=== PATIENT | female | born 1955 | race Two or more races ===

== ENCOUNTER 2022-04-16 08:50 | Inpatient (IN) | payer MEDICAID, OTHER ==
[~2022-04-16] VITALS: Ht 152.4 cm; Wt 62.5 kg
[2022-04-16 09:42] LABS: Basophils # (auto) 0 10 ^3/uL (0-0.2); Basophils % (auto) 0.5 % (0.0-2.0); Eosinophils # (auto) 0.1 10 ^3/uL (0-0.8); Eosinophils % (auto) 2.3 % (0.0-7.0); Hematocrit 42.4 % (36.0-46.0); Hemoglobin 13.9 g/dL (12.2-16.2); Lymphocytes # (auto) 1.6 10 ^3/uL (0.4-5.4); Lymphocytes % (auto) 24.3 % (10.0-50.0); Mean Corpuscular Hemoglobin 29.4 pg (28.0-32.0); Mean Corpuscular Hgb Conc. 32.9 g/dL (32.0-36.0); Mean Corpuscular Volume 89.4 fL (80.0-100.0); Monocytes # (auto) 0.3 10 ^3/uL (0-1.3); Monocytes % (auto) 3.9 % (0.0-12.0); Neutrophils # (auto) 4.5 10 ^3/uL (1.6-8.6); Nucleated Red Blood Cells % 0.1 %; Red Blood Cells 4.74 10^6/uL (4.0-5.20); Red Cell Distribution Width 13.7 % (11.8-14.3); White Blood Cell 6.5 10^3/uL (4.4-10.8)
[2022-04-16 09:49] LABS: Urine Bacteria NONE SEEN /hpf (None Seen); Urine Blood Negative /uL (Negative); Urine Specific Gravity 1.019 (1.001-1.035); Urine WBC 13 /hpf (0 - 5)
[2022-04-16 09:57] LABS: Albumin 3.7 g/dL (3.4-5.0); Calcium 8.9 mg/dL (8.5-10.1); Potassium 3.8 mmol/L (3.5-5.1)
[2022-04-16] MEDS ORDERED: SODIUM CHLORIDE 0.9% 1,000 ML IV ONE (10:00)
[2022-04-16 10:02] LABS: Bilirubin, Total 0.6 mg/dL (0.2-1.0); Total Protein 7.5 g/dL (6.4-8.2)
[2022-04-16] MEDS ORDERED: IOHEXOL 300 MG/ML 100ML BOTTLE IJ ONE (14:34)
[2022-04-16] MEDS ORDERED: KETOROLAC TROMETH 60MG/2ML VIAL IM ONE (16:30)
[2022-04-16] MEDS ORDERED: cefTRIAXone 1GM/50ML D5W 50 ML IV ONE (20:15)
[2022-04-16] MEDS ORDERED: metroNIDAZOLE 500MG/100ML 100 ML IV ONE (20:15)
[2022-04-16] MEDS ORDERED: HYDROcodone-ACET 5/325MG TAB PO ONE (20:30)
[2022-04-16] MEDS ORDERED: DEXTROSE (50%) 50ML SYRG IV PRN (22:30)
[2022-04-16] MEDS ORDERED: MORPHINE SULFATE INJ 2 MG/ml SYRG IV PRN ×2 (22:30)
[2022-04-16] MEDS ORDERED: HYDROcodone-ACET 5/325MG TAB PO PRN (22:30)
[2022-04-16] MEDS ORDERED: NITROGLYCERIN 0.4 MG SL TAB SL PRN (22:30)
[2022-04-16] MEDS ORDERED: ACETAMINOPHEN 325 MG TAB PO PRN (22:30)
[2022-04-16] MEDS: SOD CHL 0.45% 1,000 ML IV SCH (22:45)
[2022-04-17] MEDS: ACCU-CHEK COMFORT CURVE STRIP VI SCH ×4 (02:29→18:48)
[2022-04-17] MEDS: InsuLIN REG 1unit/0.01ml Soln (100units/ml) SC SCH ×4 (02:29→18:51)
[2022-04-17 05:59] LABS: Basophils # (auto) 0 10 ^3/uL (0-0.2); Basophils % (auto) 0.6 % (0.0-2.0); Eosinophils # (auto) 0.2 10 ^3/uL (0-0.8); Eosinophils % (auto) 3.7 % (0.0-7.0); Hematocrit 41.4 % (36.0-46.0); Hemoglobin 13.7 g/dL (12.2-16.2); Lymphocytes % (auto) 35.9 % (10.0-50.0); Mean Corpuscular Hemoglobin 29.5 pg (28.0-32.0); Mean Corpuscular Hgb Conc. 33.1 g/dL (32.0-36.0); Mean Corpuscular Volume 89.2 fL (80.0-100.0); Monocytes # (auto) 0.3 10 ^3/uL (0-1.3); Monocytes % (auto) 5.7 % (0.0-12.0); Neutrophils # (auto) 2.9 10 ^3/uL (1.6-8.6); Neutrophils % (auto) 54.1 % (37.0-80.0); Nucleated Red Blood Cells % 0.1 %; Red Blood Cells 4.64 10^6/uL (4.0-5.20); Red Cell Distribution Width 13.7 % (11.8-14.3); White Blood Cell 5.4 10^3/uL (4.4-10.8)
[2022-04-17 06:06] LABS: Albumin 3.3 g/dL (3.4-5.0); Calcium 8.5 mg/dL (8.5-10.1); Potassium 3.8 mmol/L (3.5-5.1)
[2022-04-17 06:11] LABS: Bilirubin, Total 0.4 mg/dL (0.2-1.0); Total Protein 6.8 g/dL (6.4-8.2)
[2022-04-17] MEDS ORDERED: FAMOTIDINE (10MG/ML) 2ML VL IV SCH (10:00)
[2022-04-17] MEDS: ONDANSETRON HCL 4 MG/2 ML VIAL IV PRN (10:39)
[2022-04-17] MEDS: CARISOPRODOL 350 MG TAB PO PRN (15:48)
[2022-04-17 17:00] VITALS: BP 111/45
[2022-04-17] MEDS: SOD CHL 0.45% 1,000 ML IV SCH (18:47)
[2022-04-17 21:18] VITALS: BP 147/52
[2022-04-17 22:00] VITALS: BP 121/49
[2022-04-17] MEDS ORDERED: METF-869 PO (22:12)
[2022-04-17] MEDS ORDERED: ASPI-543 PO (22:15)
[2022-04-17] MEDS ORDERED: INSULIN LANTUS (GLARGINE) 1 /0.01ml (100units/ml) SC ONE (23:15)
[2022-04-18] MEDS: ACCU-CHEK COMFORT CURVE STRIP VI SCH ×4 (01:06→18:30)
[2022-04-18 05:00] VITALS: BP 120/42
[2022-04-18] MEDS: CARISOPRODOL 350 MG TAB PO PRN ×2 (05:18→10:30)
[2022-04-18] MEDS: InsuLIN REG 1unit/0.01ml Soln (100units/ml) SC SCH ×4 (06:05→18:00)
[2022-04-18] MEDS ORDERED: INSULIN LANTUS (GLARGINE) 1 /0.01ml (100units/ml) SC SCH (07:00)
[2022-04-18 08:00] VITALS: BP 106/47
[2022-04-18] MEDS ORDERED: PANTOPRAZOLE 40 MG/10 ML VIAL INJ IV SCH (10:00)
[2022-04-18] MEDS ORDERED: GOLYTELY 4L KIT PO ONE (11:45)
[2022-04-18 12:00] VITALS: BP 121/53
[2022-04-18] MEDS: GABAPENTIN 100 MG CAP PO SCH ×2 (14:00→21:48)
[2022-04-18] MEDS: SOD CHL 0.45% 1,000 ML IV SCH (15:37)
[2022-04-18 16:00] VITALS: BP 116/54
[2022-04-18] MEDS: ONDANSETRON HCL 4 MG/2 ML VIAL IV PRN (21:47)
[2022-04-18 22:00] VITALS: BP 136/58
[2022-04-19] MEDS: ACCU-CHEK COMFORT CURVE STRIP VI SCH ×3 (00:06→12:00)
[2022-04-19 05:00] VITALS: BP 102/41
[2022-04-19 05:30] LABS: Basophils # (auto) 0 10 ^3/uL (0-0.2); Basophils % (auto) 0.4 % (0.0-2.0); Eosinophils # (auto) 0.2 10 ^3/uL (0-0.8); Eosinophils % (auto) 2.8 % (0.0-7.0); Hematocrit 36.4 % (36.0-46.0); Hemoglobin 11.9 g/dL (12.2-16.2); Lymphocytes # (auto) 1.7 10 ^3/uL (0.4-5.4); Mean Corpuscular Hemoglobin 29.1 pg (28.0-32.0); Mean Corpuscular Hgb Conc. 32.8 g/dL (32.0-36.0); Mean Corpuscular Volume 88.9 fL (80.0-100.0); Monocytes # (auto) 0.3 10 ^3/uL (0-1.3); Monocytes % (auto) 5.2 % (0.0-12.0); Neutrophils # (auto) 3.5 10 ^3/uL (1.6-8.6); Neutrophils % (auto) 61.6 % (37.0-80.0); Nucleated Red Blood Cells % 0.1 %; Red Blood Cells 4.09 10^6/uL (4.0-5.20); Red Cell Distribution Width 13.9 % (11.8-14.3); White Blood Cell 5.7 10^3/uL (4.4-10.8)
[2022-04-19 05:44] LABS: INR 0.97 (0.9-1.15); Partial Thromboplastin Time 25.1 sec (24.6-33.4); Potassium 3.8 mmol/L (3.5-5.1)
[2022-04-19] MEDS: GABAPENTIN 100 MG CAP PO SCH ×2 (05:45→14:59)
[2022-04-19 05:49] LABS: Albumin 3.2 g/dL (3.4-5.0); BUN/Creatinine Ratio 13.6; Bilirubin, Total 0.5 mg/dL (0.2-1.0); Calcium 8.2 mg/dL (8.5-10.1); Total Protein 5.9 g/dL (6.4-8.2)
[2022-04-19] MEDS: InsuLIN REG 1unit/0.01ml Soln (100units/ml) SC SCH ×3 (05:50→12:00)
[2022-04-19 08:00] VITALS: BP 115/39
[2022-04-19] MEDS ORDERED: NALOXONE HCL 0.4 MG/ML VIAL ONE (09:21)
[2022-04-19] MEDS ORDERED: FLUMAZENIL 0.1 MG/ML INJ 10ML MDV IV ONE (09:22)
[2022-04-19] MEDS ORDERED: LIDOCAINE VISCOUS 2% 15ML UD ONE (09:23)
[2022-04-19] MEDS ORDERED: MIDAZOLAM HCL 5 MG/ML-1ML VIAL ONE (09:24)
[2022-04-19] MEDS ORDERED: diphenhdrAMINE HCL 50 MG/1 ML VL ONE (09:25)
[2022-04-19] MEDS ORDERED: fentaNYL CITRATE 100 MCG/2 ML VL ONE (09:25)
[2022-04-19] MEDS ORDERED: SODIUM CHLORIDE LOCK 10 ML ONE (09:26)
[2022-04-19] MEDS: SOD CHL 0.45% 1,000 ML IV SCH (10:30)
[2022-04-19 11:45] VITALS: BP 120/43
[2022-04-19] MEDS ORDERED: METF-370 PO (13:24)
[2022-04-19] MEDS ORDERED: GAB100C PO (13:24)
[2022-04-19] MEDS ORDERED: AMLO-496 PO (13:24)
[2022-04-19 16:00] VITALS: BP 119/43
[2022-04-19 16:33] VITALS: BP 120/43
[2022-04-20] MEDS ORDERED: PANTOPRAZOLE 40 MG TAB PO SCH (10:00)
== END 2022-04-19 17:30 | disposition home or self-care (01) | DRG 249 ==
LOC: ER 08:57 → OVERFLOW 22:16 → EAST 04-17 11:06
PROVIDERS: ADMIT Nurse Practitioner Family; ATTEND Nurse Practitioner Acute Care
PROC: 0DB68ZX Excision of Stomach, Via Natural or Artificial Opening Endoscopic, Diagnostic (ICD-10-PCS; principal; 2022-04-19 10:20)
PROC: 0DJD8ZZ Inspection of Lower Intestinal Tract, Via Natural or Artificial Opening Endoscopic (ICD-10-PCS; 2022-04-19 10:20)
DX: K52.9 Noninfective gastroenteritis and colitis, unspecified (principal); E11.9 Type 2 diabetes mellitus without complications; E78.5 Hyperlipidemia, unspecified; I10 Essential (primary) hypertension; N39.0 Urinary tract infection, site not specified; K29.70 Gastritis, unspecified, without bleeding; K29.80 Duodenitis without bleeding; K57.30 Diverticulosis of large intestine without perforation or abscess without bleeding; K64.8 Other hemorrhoids; Z20.822 Contact with and (suspected) exposure to COVID-19; M54.30 Sciatica, unspecified side; Z79.899 Other long term (current) drug therapy
CPT/HCPCS: 36415; 43239; 45378; 71045; 74177; 76705; 80053; 81001; 82150; 82962; 83036; 83690; 84484; 85025; 85610; 85730; 86850; 86900; 86901; 87086; 87426; 93005; 96361; 96365; 96372; C9113; G0378; J0696; J1815; J1885; J2250; J2405; J3490

== ENCOUNTER 2023-03-02 00:59 | Emergency (ER) | payer MEDICAID ==
[~2023-03-02] VITALS: Ht 142.2 cm; Wt 56.4 kg
[~2023-03-02 00:59] MED LIST: AMLO1TAB23 PO; ASPI-543 PO; GAB100C PO; METF-370 PO; METF-869 PO
[2023-03-02 01:55] LABS: Basophils # (auto) 0 10 ^3/uL (0-0.2); Basophils % (auto) 0.6 % (0.0-2.0); Eosinophils # (auto) 0.2 10 ^3/uL (0-0.8); Hematocrit 41.4 % (36.0-46.0); Hemoglobin 13.5 g/dL (12.2-16.2); Lymphocytes # (auto) 2.2 10 ^3/uL (0.4-5.4); Lymphocytes % (auto) 33.2 % (10.0-50.0); Mean Corpuscular Hemoglobin 29.1 pg (28.0-32.0); Mean Corpuscular Hgb Conc. 32.6 g/dL (32.0-36.0); Mean Corpuscular Volume 89.1 fL (80.0-100.0); Monocytes # (auto) 0.4 10 ^3/uL (0-1.3); Monocytes % (auto) 5.8 % (0.0-12.0); Neutrophils # (auto) 3.7 10 ^3/uL (1.6-8.6); Neutrophils % (auto) 57.4 % (37.0-80.0); Red Blood Cells 4.65 10^6/uL (4.0-5.20); Red Cell Distribution Width 13.4 % (11.8-14.3); White Blood Cell 6.5 10^3/uL (4.4-10.8)
[2023-03-02 02:07] LABS: Alanine Aminotransferase 17 U/L (7-40); Albumin 4.5 g/dL (3.2-4.8); Alkaline Phosphatase 137 U/L (46-116); Anion Gap 9 (5-15); Aspartate Aminotransferase 9 U/L (13-40); Bilirubin, Total 0.4 mg/dL (0.2-1.0); Blood Urea Nitrogen 14 mg/dL (9-23); Calcium 9.2 mg/dL (8.7-10.4); Carbon Dioxide 22 mmol/L (20-30); Chloride 107 mmol/L (98-107); Glucose 204 mg/dL (74-106); Lipase 57 U/L (12-53); Potassium 3.5 mmol/L (3.5-5.1); Sodium 138 mmol/L (136-145); Total Protein 7.3 g/dL (5.7-8.2)
[2023-03-02 02:38] LABS: Urine Bacteria NONE SEEN /hpf (None Seen); Urine Blood Negative /uL (Negative); Urine Clarity Clear (Clear); Urine Color Colorless (Yellow); Urine Protein, UAD Negative (Negative); Urine Specific Gravity 1.004 (1.001-1.035); Urine Urobilinogen Normal (Negative); Urine WBC 3 /hpf (0 - 5)
[2023-03-02] MEDS ORDERED: DICYCLOMINE HCL (10MG/ML) 2 ML AMPULE IM ONE ×2 (07:15→09:00)
[2023-03-02] MEDS ORDERED: KETOROLAC TROMETH 60MG/2ML VIAL IM ONE ×2 (07:15→09:00)
[2023-03-02] MEDS ORDERED: ONDANSETRON ODT 4 MG TAB PO ONE ×2 (07:15→09:00)
[2023-03-02] MEDS ORDERED: ZOFR4T PO (11:21)
[2023-03-02 11:52] VITALS: BP 133/56; PULSE 60; RESP 16; TEMP 97.1; O2SAT 98
== END 2023-03-02 11:53 | disposition home or self-care (01) ==
LOC: ER 01:01
DX: R10.13 Epigastric pain (principal); R11.0 Nausea; I10 Essential (primary) hypertension; E11.9 Type 2 diabetes mellitus without complications; E78.5 Hyperlipidemia, unspecified; Z98.890 Other specified postprocedural states; Z79.84 Long term (current) use of oral hypoglycemic drugs; Z79.899 Other long term (current) drug therapy
CPT/HCPCS: 36415; 71045; 74176; 76705; 80053; 81001; 83690; 84484; 85025; 93005; 96372; 99285; J0500; J1885; Q0162

== ENCOUNTER 2024-11-20 22:30 | Inpatient (IN) | payer MEDICAID ==
[~2024-11-20] VITALS: Ht 142.2 cm; Wt 59.2 kg
[~2024-11-20 22:30] MED LIST changes: +ZOFR4T PO
--- NOTE | 2024-11-21 00:44 | ED.PDOC ---
GI ASSESSMENT HPI Comments 70 year old female presents to the ED with a chief complaint of hematemesis onset 1 day. Patient states she experienced 4 episodes of hematemesis, noticed blood clots and is also experiencing diffused abdominal pain with burning sensation, headache, nausea/vomiting, bilateral flank pain, worse on LT side. Patient noticed for the past 1.5 months, she experiences 1 episode of hematemesis in the morning, shortly after waking up, noticed today she ex perienced 4 episodes, came to ED. She has also noticed black phlegm with foul odor. PMHx HTN, DM, HLD. Denies dizziness, fevers, chills, melena, rectal pain, shortness of breath. No other symptoms or modifying factors present at this time. Chief Complaint: Nausea/Vomiting Time Seen by MD: 00:30 Primary Care Provider: Chelsie Reviewed Notes: Medications, Allergies Allergies: Coded Allergies: NO KNOWN ALLERGIES (Unverified , 04/16/22) Home Meds Active Scripts Ondansetron Odt 4MG Tab (ZOFRAN PO) 4 Mg Tb, 4 MG PO TID for 7 Days, #21 TAB ODT TAB-DISSOLVE IN MOUTH, THEN SWALLOW Prov:PETTY MINA MD 03/02/23 Amlodipine Besylate (Amlodipine Besylate) 10 Mg Tab, 1 TAB PO DAILY, #90 TAB 3 Refills Prov:BELLA HERNANDEZ NP 04/19/22 Metformin Hydrochloride (Metformin Hcl) 500 Mg Tab, 1 TAB PO BID, #60 TAB 3 Refills Prov:BELLA HERNANDEZ NP 04/19/22 Gabapentin (Gabapentin) 100 Mg Cap, 100 MG PO TID for 90 Days, #270 CAP Prov:BELLA HERNANDEZ NP 04/19/22 Reported Medications Aspirin (Aspir-Low) 81 Mg Tab, 81 MG PO DAILY for 30 Days, MG 04/17/22 Metformin Hydrochloride (Metformin Hydrochloride) 500 Mg Tab, 1 TAB PO DAILYPRN 04/17/22 Information Source: Patient, Relative (GrandChild) Mode of Arrival: Ambulatory Timing: Hours Duration: Since onset Prehospital treatment: None Quality: Burning, Sharp Vomitus: Bloody Severity: Moderate Recent: None Recent Hx of: None Pain Location: Diffuse Modifying Factors: Nothing Associated sign and symptoms: Nausea, Vomiting, Hematemesis, Abdominal Pain Vital Signs Vital Signs Date Time Temp Pulse Resp B/P (MAP) Pulse Ox O2 Delivery O2 Flow Rate FiO2 11/21/24 02:40 56 14 143/48 11/21/24 02:21 98 Room Air* 0 21 11/21/24 02:12 98.2 98.2 Physical Exam PHYSICAL EXAM: General: Awake, alert and oriented. No acute distress. Skin: Skin in warm, dry and intact. Appropriate color for ethnicity. HEENT: The head is normocephalic and atraumatic. Conjunctivae are clear without exudates or hemorrhage. Sclera is non-icteric. EOM are intact. No signs of nystagmus. Eyelids are normal in appearance without swelling or lesions. Oral mucosa is pink and moist Neck: The neck is supple with normal range of motion. No JVD. Cardiac: Heart rate and rhythm are normal. No murmurs, gallops, or rubs are auscultated. Respiratory: No signs of respiratory distress. Lung sounds are clear in all lobes bilaterally without rales, rhonchi, or wheezes. Abdominal: Abdomen is soft, generally-tender without distention, guarding or rigidity. Bowel sounds are present and normoactive in all four quadrants. Extremities: Upper and lower extremities are atraumatic in appearance without deformity or edema. Neurological: The patient is awake, alert and oriented to person, place, and time with normal speech. Speech is clear. There is no facial asymmetry. Psychiatric: Appropriate mood and affect. Good judgement and insight. Review of Systems: REVIEW OF SYSTEMS: General: No fever, no chills, or fatigue HEENT: No sore throat, no earache, no congestion, no neck pain. Cardiac: No chest pain. No palpitations. Lungs: No shortness of breath, no cough. No hemoptysis GI: Positive nausea, positive vomiting, no diarrhea, no constipation, positive abdominal pain, positive hematemesis : No dysuria, frequency, or urgency. No hematuria. Musculoskeletal: No joint pain , no joint swelling, no extremity edema. Skin: No rash, no itching. 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 Was a procedure done?: No GI differential Dx Differential Diagnosis: Other Other Differential Diagnosis Differential diagnoses considered include but are not limited to Peptic ulcer disease, esophageal varices,Langford's esophagus, cancer, diverticular disease, esophageal rupture/perforation, Marce-Bhat tear, other X-Ray, Labs, Meds, VS Vital Signs Date Time Temp Pulse Resp B/P (MAP) Pulse Ox O2 Delivery O2 Flow Rate FiO2 11/21/24 02:40 56 14 143/48 11/21/24 02:21 53 14 98 Room Air* 0 21 11/21/24 02:12 98.2 54 14 143/48 (79) 98 98.2 11/21/24 02:12 53 14 143/48 11/21/24 00:44 64 11/20/24 23:23 64 11/20/24 22:45 98.1 70 18 144/65 (91) 95 98.1 Lab Test 11/21/24 00:39 Range/Units White Blood Count 6.4 4.4-10.8 10^3/uL Red Blood Count 4.82 4.0-5.20 10^6/uL Hemoglobin 14.3 12.2-16.2 g/dL Hematocrit 42.9 36.0-46.0 % Mean Corpuscular Volume 89.0 80.0-100.0 fL Mean Corpuscular Hemoglobin 29.6 28.0-32.0 pg Mean Corpuscular Hemoglobin Concent 33.3 32.0-36.0 g/dL Red Cell Distribution Width 13.4 11.8-14.3 % Platelet Count 210 140-450 10^3/uL Mean Platelet Volume 10.4 6.9-10.8 fL Neutrophils (%) (Auto) 54.9 37.0-80.0 % Lymphocytes (%) (Auto) 37.8 10.0-50.0 % Monocytes (%) (Auto) 4.4 0.0-12.0 % Eosinophils (%) (Auto) 2.4 0.0-7.0 % Basophils (%) (Auto) 0.5 0.0-2.0 % Neutrophils # (Auto) 3.5 1.6-8.6 10 ^3/uL Lymphocytes # (Auto) 2.4 0.4-5.4 10 ^3/uL Monocytes # (Auto) 0.3 0-1.3 10 ^3/uL Eosinophils # (Auto) 0.2 0-0.8 10 ^3/uL Basophils # (Auto) 0 0-0.2 10 ^3/uL Nucleated Red Blood Cells 0.1 % Prothrombin Time 10.0 9.3-11.8 sec Prothrombin Time INR 0.94 0.9-1.15 Activated Partial Thromboplast Time 24.8 24.5-34.5 SEC Sodium Level 143 136-145 mmol/L Potassium Level 3.8 3.5-5.1 mmol/L Chloride Level 106 98-107 mmol/L Carbon Dioxide Level 29 20-31 mmol/L Anion Gap 8 5-15 Blood Urea Nitrogen 20 9-23 mg/dL Creatinine 0.93 0.550-1.02 mg/dL Glomerular Filtration Rate Calc 66 >90 mL/min BUN/Creatinine Ratio 21.5 H 10.0-20.0 Serum Glucose 161 H 74-106 mg/dL Lactic Acid Level 1.5 0.4-2.0 mmol/L Calcium Level 9.1 8.7-10.4 mg/dL Magnesium Level Pending Total Bilirubin 0.6 0.2-1.0 mg/dL Direct Bilirubin 0.2 <0.3 mg/dL Aspartate Amino Transferase (AST) 19 13-40 U/L Alanine Aminotransferase (ALT) 19 7-40 U/L Alkaline Phosphatase 109 46-116 U/L Total Protein 7.4 5.7-8.2 g/dL Albumin 4.6 3.2-4.8 g/dL Lipase Pending Thyroid Stimulating Hormone (TSH) 3.55 0.55-4.78 uIU/mL Current Medications Medications (Trade) Dose Ordered Sig/Brittney Route Start Time Stop Time Status Last Admin Pantoprazole Sodium (Protonix) 40 mg ONCE ONCE IV 11/21/24 00:30 11/21/24 00:31 DC 11/21/24 01:27 Ondansetron HCl (Zofran) 4 mg ONCE ONCE IV 11/21/24 02:00 11/21/24 02:01 DC 11/21/24 02:08 Morphine Sulfate 2 mg ONCE ONCE IV 11/21/24 02:00 11/21/24 02:01 DC 11/21/24 02:12 Time of 1ST Reevaluation: 01:00 Reevaluation 1ST: Unchanged Patient Education/Counseling: Treatment, Other (Need for admission) Family Education/Counseling: Treatment, Other (Need for admission) SEPSIS Sepsis Screen Date sepsis recognized/suspect: Nov 20, 2024 Time Sepsis recognized/suspect: 2244 Recent Procedure: No On Antibiotic Therapy: No Respiratory Rate >20: No Heart Rate >90: No Temp<36 C (96.8 F) or >38.3 C: No SBP <90 or MAP <65 mmHG: No New Acute Mental Status Change: No Is the patient on CPAP, BIPAP,: No Physician Orders Urinalysis (11/21/24 00:22) Stool Occult Blood (11/21/24 00:22) Ct Ab Pel With Iv Con Only (11/21/24 00:22) Saline Lock (11/21/24 00:22) Electrocardigram (11/21/24 00:59) Vital Signs Date Time Temp Pulse Resp B/P (MAP) Pulse Ox O2 Delivery O2 Flow Rate FiO2 11/21/24 02:40 56 14 143/48 11/21/24 02:21 53 14 98 Room Air* 0 21 11/21/24 02:12 98.2 54 14 143/48 (79) 98 98.2 11/21/24 02:12 53 14 143/48 11/21/24 00:44 64 11/20/24 23:23 64 11/20/24 22:45 98.1 70 18 144/65 (91) 95 98.1 Laboratory Tests Test 11/21/24 00:39 Lactic Acid Level 1.5 mmol/L (0.4-2.0) White Blood Count 6.4 10^3/uL (4.4-10.8) Medications Medications Dose Ordered Sig/Brittney Route Start Time Stop Time Status Last Admin Dose Admin Morphine Sulfate 2 mg ONCE ONCE IV 11/21/24 02:00 11/21/24 02:01 DC 11/21/24 02:12 Ondansetron HCl 4 mg ONCE ONCE IV 11/21/24 02:00 11/21/24 02:01 DC 11/21/24 02:08 Pantoprazole Sodium 40 mg ONCE ONCE IV 11/21/24 00:30 11/21/24 00:31 DC 11/21/24 01:27 Departure 1 Departure Time of Disposition: 02:11 Impression: Primary Impression: Abdominal pain Additional Impression: Hematemesis Disposition: ADMITTED INPATIENT Condition: Stable Comments MDM: 70 year old female with abdominal pain worsening hematemesis. Stabilized in the ED. Protonix, antiemetics and pain control initiated. Patient admitted to hospitalist service for further treatment, evaluation and observation. Extensive evaluation was performed in attempt to identify or rule out: (See differential diagnosis section) The following tests were ordered, and results were reviewed by me and discussed with patient: (See diagnostic results section) The following test were independently interpreted by me: N/A I reviewed the following notes from the pt's past medical encounters: N/A Additional information was gathered from interviewing the following independent historians: Patient's granddaughter at bedside Discussion of management or test interpretation with external physician/other qualified health care director: N/A Addressedan acute or chronic illness that poses a threat to life or bodily function: Upper GI Bleeding Decision regarding hospitalization or escalation of hospital level of care: Risk and benefits of admission for further treatment of patient's condition was considered. Due to patient's current clinical condition, high risk of decline and poor outcome if discharged and need for further inpatient management and monitoring, patient will be admitted to the hospital. Drug therapy requiring intensive monitoring for toxicity: IV Contrast Parenteral controlled substances: IV morphine Decision regarding elective major surgery with identified patient or procedure risk factors: N/A Decision regarding emergency major surgery: N/A Decision not to resuscitate or to de-escalate care because of poor prognosis: N/A Diagnosis or treatment significantly limited by social determinants of health: N/A Critical Care Note Critical Care Time?: No Stability Stability form required: No I personally scribed for BERENICE ISAACS MD ([email or web address]) on 11/21/24 at 00:44. Electronically submitted by Jelly Harris ([email or web address]). I personally scribed for BERENICE ISAACS MD ([email or web address]) on 11/21/24 at 00:44. Electronically submitted by Jelly Harris ([email or web address]). BERENICE ISAACS MD Nov 21, 2024 00:44
[2024-11-21] MEDS: IOHEXOL 300 MG/ML 100ML BOTTLE IJ ONE (00:46)
[2024-11-21 01:01] LABS: Hematocrit 42.9 % (36.0-46.0); Hemoglobin 14.3 g/dL (12.2-16.2); Mean Corpuscular Hemoglobin 29.6 pg (28.0-32.0); Mean Corpuscular Volume 89.0 fL (80.0-100.0); Nucleated Red Blood Cells % 0.1 %
[2024-11-21 01:16] LABS: Alanine Aminotransferase 17 U/L (7-40); Albumin 4.6 g/dL (3.2-4.8); Alkaline Phosphatase 110 U/L (46-116); Anion Gap 8 (5-15); BUN/Creatinine Ratio 21.5 (10.0-20.0); Bilirubin, Total 0.6 mg/dL (0.2-1.0); Blood Urea Nitrogen 20 mg/dL (9-23); Calcium 9.1 mg/dL (8.7-10.4); Carbon Dioxide 29 mmol/L (20-31); Chloride 106 mmol/L (98-107); Potassium 3.8 mmol/L (3.5-5.1); Sodium 143 mmol/L (136-145); Total Protein 7.3 g/dL (5.7-8.2)
[2024-11-21 01:21] LABS: Glucose 161 mg/dL (74-106)
[2024-11-21] MEDS: PANTOPRAZOLE 40 MG/10 ML VIAL INJ IV ONE (01:27)
[2024-11-21] MEDS: ONDANSETRON HCL 4 MG/2 ML VIAL IV ONE (02:08)
--- NOTE | 2024-11-21 02:09 | DVH ---
Exam: CT CT AB PEL WITH IV CON ONLY History: Suspected upper GI bleed COMPARISON: CT AB PEL WITH IV CON ONLY on DOS: 04/16/22 Technique: Multidetector spiral CT of the abdomen and pelvis was performed from lung bases to pubic s ymphysis. Intravenous contrast was administered during this examination. Portal venous imaging was o btained. Axial, coronal and sagittal multiplanar reformats were performed by the technologist on a [employer] workstation. Radiation Dose : 1. Abdomen/Pelvis: CTDIvol 14.63 mGy, DLP 690.88 mGy*cm. CONTRAST: Type of contrast: Omnipaque 300 Contrast injected: 100 ml Findings: Lung Bases: No acute or significant lung base finding. Normal heart size. No pleural or pericardial effusion. Liver: The liver is enlarged, measuring 19.8 cm in craniocaudal dimension. Diffuse hepatic steatosis. No focal lesions. Normal hepatic vascular enhancement. Gallbladder and Biliary Tree: Moderate gallbladder distention. Spleen: Unremarkable Pancreas: The pancreas is normal in appearance without focal lesions or abnormal enhancement. Adrenal Glands: Unremarkable Kidneys: No nephrolithiasis or hydronephrosis. 5 mm left interpolar renal cortical cyst. Bladder: Unremarkable Bowel: The stomach is grossly normal in appearance. Small bowel and colon are normal in caliber and d istribution. Diverticulosis coli without CT evidence of acute diverticulitis. The appendix is normal. Ascites: Absent Lymphadenopathy: No mesenteric, retroperitoneal or periportal lymphadenopathy. Abdominal Wall and Mesentery: Unremarkable. Vasculature: The visualized abdominal aorta is normal in size and caliber. Abdominal and pelvic vess els demonstrate normal enhancement. Pelvic Organs: Unremarkable Musculoskeletal: No aggressive focal bony lesions, acute fractures or dislocation. IMPRESSION: 1. No acute abdominal or pelvic finding. 2. Hepatomegaly and hepatic steatosis. 3. Diverticulosis coli without CT evidence of acute diverticulitis. Radiation optimization: All CT scans at this facility use at least one of these dose optimization ashtyn hniques: automated exposure control mA and/or kV adjustment per patient size (includes targeted exam s where dose is matched to clinical indication) or iterative reconstruction.
[2024-11-21] MEDS: MORPHINE SULFATE INJ 2 MG/ml SYRG IV ONE ×2 (02:12→12:25)
[2024-11-21 02:21] VITALS: PULSE 53; RESP 14; O2SAT 98
--- NOTE | 2024-11-21 02:56 | DVHHP2 ---
History of Present Illness History of Present Illness Patient is 70 years old male with a past medical history of hypertension, hyperlipidemia, diabetes mellitus type 2 came with a complaint of hematemesis. As per patient she had 4 times hematemesis today since morning. Patient reported she has been having blood vomiting once every morning after she wakes up in the morning. But today it has been for 4 times that is unusual for her. Patient also reported chronic abdominal pain especially in the left flank, 9/10, diffuse, crampy, burning in nature, decreased with pain medication ibuprofen. Patient also reported she has been taking off and on ibuprofen almost twice a week for last 2 and half month due to abdominal pain. On further inquiry patient also reported seeing black stool for last 3 days. She reported she saw her primary care physician for abdominal pain but she does not have a diagnosis for that. Patient denied doing any colonoscopy or endoscopy or history of liver disease. Initial lab workup revealed hemoglobin 14.3. CT abdomen and pelvis revealed hepatomegaly with a hepatic steatosis, diverticulosis without diverticulitis, moderately dilated gallbladder. Past Medical History hypertension, hyperlipidemia, diabetes mellitus type 2 Past Surgical History Tubal ligation Past Social History Denies smoking/alcoholism/drug abuse, lives with granddaughter Review of Systems Review of Systems Allergy- NKDA Patient was seen today at the bedside. Cardiovascular- deny acute chest pain or shortness of breath or cough or palpitation Respiratory denies cough or short of breath or wheezing Gastrointestinal- denies any rectal bleeding Musculoskeletal-denies acute joint swelling or tenderness or redness Neurological- denies acute dysarthria, dysphagia, change in vision Psychiatry- denies depression or SI or HI Skin- denies acute rash or purpura Allergies: Coded Allergies: NO KNOWN ALLERGIES (Unverified , 04/16/22) Exam Vital Signs Vital Signs Date Time Temp Pulse Resp B/P (MAP) Pulse Ox O2 Delivery O2 Flow Rate FiO2 11/21/24 02:40 56 14 143/48 11/21/24 02:21 98 Room Air* 0 21 11/21/24 02:12 98.2 98.2 Exam General examination-awake, alert, conversant HEENT- PEERLA, no acute nasal discharge Cardiovascular- S1-S2 audible, rate and rhythm regular, no murmur Respiratory- CTAB, no wheeze or rhonchi Gastrointestinal-mild left upper abdominal tenderness+, bowel sound+. Nondistended Musculoskeletal-no acute joint swelling or tenderness or redness Lower extremity- no leg edema Neurological- cranial nerves intact, no acute dysarthria or dysphagia Psychiatry- denies depression or SI or HI Skin- no acute rash or purpura Labs/Xrays Labs Test 11/21/24 00:39 Range/Units White Blood Count 6.4 4.4-10.8 10^3/uL Red Blood Count 4.82 4.0-5.20 10^6/uL Hemoglobin 14.3 12.2-16.2 g/dL Hematocrit 42.9 36.0-46.0 % Mean Corpuscular Volume 89.0 80.0-100.0 fL Mean Corpuscular Hemoglobin 29.6 28.0-32.0 pg Mean Corpuscular Hemoglobin Concent 33.3 32.0-36.0 g/dL Red Cell Distribution Width 13.4 11.8-14.3 % Platelet Count 210 140-450 10^3/uL Mean Platelet Volume 10.4 6.9-10.8 fL Neutrophils (%) (Auto) 54.9 37.0-80.0 % Lymphocytes (%) (Auto) 37.8 10.0-50.0 % Monocytes (%) (Auto) 4.4 0.0-12.0 % Eosinophils (%) (Auto) 2.4 0.0-7.0 % Basophils (%) (Auto) 0.5 0.0-2.0 % Neutrophils # (Auto) 3.5 1.6-8.6 10 ^3/uL Lymphocytes # (Auto) 2.4 0.4-5.4 10 ^3/uL Monocytes # (Auto) 0.3 0-1.3 10 ^3/uL Eosinophils # (Auto) 0.2 0-0.8 10 ^3/uL Basophils # (Auto) 0 0-0.2 10 ^3/uL Nucleated Red Blood Cells 0.1 % Sodium Level 143 136-145 mmol/L Potassium Level 3.8 3.5-5.1 mmol/L Chloride Level 106 98-107 mmol/L Carbon Dioxide Level 29 20-31 mmol/L Anion Gap 8 5-15 Blood Urea Nitrogen 20 9-23 mg/dL Creatinine 0.93 0.550-1.02 mg/dL Glomerular Filtration Rate Calc 66 >90 mL/min BUN/Creatinine Ratio 21.5 H 10.0-20.0 Serum Glucose 161 H 74-106 mg/dL Lactic Acid Level 1.5 0.4-2.0 mmol/L Calcium Level 9.1 8.7-10.4 mg/dL Total Bilirubin 0.6 0.2-1.0 mg/dL Aspartate Amino Transferase (AST) 19 13-40 U/L Alanine Aminotransferase (ALT) 17 7-40 U/L Alkaline Phosphatase 110 46-116 U/L Total Protein 7.3 5.7-8.2 g/dL Albumin 4.6 3.2-4.8 g/dL SEPSIS Sepsis Screen Date sepsis recognized/suspect: Nov 21, 2024 Time Sepsis recognized/suspect: 223 Recent Procedure: No On Antibiotic Therapy: No Respiratory Rate >20: No Heart Rate >90: No Temp<36 C (96.8 F) or >38.3 C: No SBP <90 or MAP <65 mmHG: No New Acute Mental Status Change: No Is the patient on CPAP, BIPAP,: No Physician Orders Urinalysis (11/21/24 00:22) Stool Occult Blood (11/21/24 00:22) Ct Ab Pel With Iv Con Only (11/21/24 00:22) Saline Lock (11/21/24 00:22) Electrocardigram (11/21/24 00:59) Admit (11/21/24 02:54) 0.9% Ns 1000 Ml (11/21/24 03:00) Complete Blood Count (11/22/24 04:00) Comprehensive Metabolic Panel (11/22/24 04:00) Npo (Nothing By Mouth) Diet (11/21/24 Breakfast) Vital Signs Date Time Temp Pulse Resp B/P (MAP) Pulse Ox O2 Delivery O2 Flow Rate FiO2 11/21/24 02:40 56 14 143/48 11/21/24 02:21 53 14 98 Room Air* 0 21 11/21/24 02:12 98.2 54 14 143/48 (79) 98 98.2 11/21/24 02:12 53 14 143/48 11/21/24 00:44 64 11/20/24 23:23 64 11/20/24 22:45 98.1 70 18 144/65 (91) 95 98.1 Laboratory Tests Test 11/21/24 00:39 Lactic Acid Level 1.5 mmol/L (0.4-2.0) White Blood Count 6.4 10^3/uL (4.4-10.8) Medications Medications Dose Ordered Sig/Brittney Route Start Time Stop Time Status Last Admin Dose Admin Morphine Sulfate 2 mg ONCE ONCE IV 11/21/24 02:00 11/21/24 02:01 DC 11/21/24 02:12 2 MG Ondansetron HCl 4 mg ONCE ONCE IV 11/21/24 02:00 11/21/24 02:01 DC 11/21/24 02:08 4 MG Pantoprazole Sodium 40 mg ONCE ONCE IV 11/21/24 00:30 11/21/24 00:31 DC 11/21/24 01:27 40 MG Assessment/Plan Assessment/Plan Assessment and plan # hematemesis # hepatomegaly with hepatic steatosis # hyper ammonia -continue pantoprazole 40 mg IV b.i.d. -continue IV normal saline as prescribed -NPO -pending GI consult # diffuse abdominal pain likely due to colitis/pancreatitis/gastritis -lipase within normal limit -CT abdomen hepatomegaly with hepatic steatosis, diverticulosis no di verticulitis -continue IV normal saline as prescribed -continue pantoprazole 40 mg IV b.i.d. # hypertension -hydralazine IV p.r.n. as prescribed # diabetes mellitus type 2 -insulin sliding scale p.r.n. as prescribed # hyperlipidemia Goals of care, Code status full code ; discussed with >15 minutes PUD prophylaxis: Pantoprazole DVT prophylaxis: SCD Plan discussed with Dr. Burgos , nursing staff, Total time spent on patient evaluation, chart review, assessment and plan, discussion discussion >35 minutes Plan discussed with: Patient, Other (Grand daughter, RN) My Orders Orders - DANA NEFF RESIDENT Procedure Category Date Status Time Admit ADMIT 11/21/24 Verified 02:54 0.9% Ns 1000 Ml PHA 11/21/24 Verified 03:00 Complete Blood Count LAB 11/22/24 Verified 04:00 Comprehensive LAB 11/22/24 Verified Metabolic Panel 04:00 Npo (Nothing By DIET 11/21/24 Verified Mouth) Diet Breakfast Date of Service: Nov 21, 2024 Billing Provider: HILDA BURGOS MD Common Visit Codes: 36062-ZSFYDIW INP/OBS CARE (HIGH) Secondary Visit Codes: 84509-[id number] CARE PLAN 30 MINUTES DANA NEFF RESIDENT Nov 21, 2024 02:56
[2024-11-21] MEDS ORDERED: hydrALAZINE HCL 20 MG/ML VL IV PRN (03:00)
[2024-11-21] MEDS ORDERED: PANTOPRAZOLE 40 MG/10 ML VIAL INJ IV ONE (03:00)
[2024-11-21] MEDS ORDERED: DEXTROSE (50%) 50ML SYRG IV PRN (03:15)
[2024-11-21] MEDS: SODIUM CHLORIDE 0.9% 1,000 ML IV SCH (03:17)
[2024-11-21 03:25] LABS: Alanine Aminotransferase 19.0 U/L (7-40); Albumin 4.6 g/dL (3.2-4.8); Alkaline Phosphatase 109.0 U/L (46-116); Bilirubin, Direct 0.2 mg/dL (<0.3); Bilirubin, Total 0.6 mg/dL (0.2-1.0); Total Protein 7.4 g/dL (5.7-8.2)
[2024-11-21 03:27] LABS: INR 0.94 (0.9-1.15); Partial Thromboplastin Time 24.8 SEC (24.5-34.5); Prothrombin Time 10.0 sec (9.3-11.8)
[2024-11-21] MEDS: ACCU-CHEK COMFORT CURVE STRIP VI SCH (06:48)
[2024-11-21] MEDS: InsuLIN REG 1unit/0.01ml Soln (100units/ml) SC SCH (06:55)
[2024-11-21 07:30] LABS: Hematocrit 38.8 % (36.0-46.0); Hemoglobin 13.0 g/dL (12.2-16.2); Mean Corpuscular Hemoglobin 29.9 pg (28.0-32.0); Mean Corpuscular Volume 88.8 fL (80.0-100.0); Nucleated Red Blood Cells % 0.1 %
[2024-11-21 07:41] LABS: Calcium 9.1 mg/dL (8.7-10.4); Chloride 105 mmol/L (98-107); Potassium 3.8 mmol/L (3.5-5.1); Sodium 139 mmol/L (136-145)
[2024-11-21 07:42] LABS: Anion Gap 9 (5-15); Carbon Dioxide 25 mmol/L (20-31)
[2024-11-21 07:45] VITALS: PULSE 56; RESP 13; O2SAT 97
[2024-11-21 07:47] LABS: BUN/Creatinine Ratio 25.6 (10.0-20.0); Blood Urea Nitrogen 20 mg/dL (9-23)
[2024-11-21 07:51] LABS: Glucose 164 mg/dL (74-106)
[2024-11-21 08:10] LABS: Amphetamine Screen, Urine Neg (NEGATIVE); Barbiturate Scree,Urine Neg (NEGATIVE); Benzodiazephine Screen, Urine Neg (NEGATIVE); Cannabinoid Screen, Urine Neg (NEGATIVE); Cocaine Screen, Urine Neg (NEGATIVE); Opiate Scree,Urine Pos (NEGATIVE); Phencyclidine Screen, Urine Neg (NEGATIVE)
[2024-11-21 08:12] LABS: Urine Protein, UAD 1+ (Negative)
--- NOTE | 2024-11-21 09:38 | ECG ---
[facility] Test Date: 2024-11-20 Test Time: 23:23:30 Pat Name: RANJIT ADAMS Department: ED Room: [address] [place] [address] Gender: F Senior Recruitment Consultant: JERRY : 1954-11-14 Requested By: BERENICE ISAACS Order Number: [id number] Reading MD: Measurements Intervals [place] Rate: 64 P: 32 ME: 141 QRS: 50 QRSD: 88 T: 16 QT: 413 QTc: 426 Interpretive Statements Sinus rhythm Please click the below link to view image of tracing.
[2024-11-21] MEDS ORDERED: MORPHINE SULFATE INJ 2 MG/ml SYRG IV PRN (12:00)
[2024-11-21] MEDS: cefTRIAXone 1GM/50ML D5W 50 ML IV ONE (12:23)
--- NOTE | 2024-11-21 12:46 | DVHINCON2 ---
GI Consult Consult Note GI consult note Date of Consultation: 11/21/2024 Chief Complaint: Hematemesis Referring Physician: Dr. Hui H&P: 70-year-old Sami-speaking female with past medical history of hypertension, hyperlipidemia, diabetes, presented to ER with complains of hematemesis. Patient is seen in ER bed 12. RN translating. Patient is complaining of left side abdominal pain for one month, describes pain as being constant, improves with walking, worsens with lying down. Also has symptoms of burning sensation in her esophagus. Patient has history of GERD and omeprazole does not seem to be helping her. Patient has nausea and vomiting with one episode of small amount hematemesis for one month. Hematemesis worse in the last 2-3 days. Patient also has noticed melena for the last 3-4 days. Admits to using ibuprofen two pills every day Patient admits to only social alcohol use No EGD in past Takes aspirin last dose one-week ago Past Medical History: hypertension, hyperlipidemia, diabetes mellitus type 2 Past Surgical History: Tubal ligation Social History: NO smoking, drinking ETOH and use of illegal drugs. Family History: Noncontributory Review of Systems: Constitutional: no fever, chill, weight loss HEENT: no eye pain, no hearing loss, no oral lesion, no scleral icterus Heart: no chest pain, no chest pressure Lung: no cough, no dyspnea with exertion Abdomen: see HPI Physical exam: General: NAD, AAOX3 Chest: lung hopper clear to auscultation Heart: RRR, no murmur Abdomen: non-distended, no tenderness to palpation, +BS Labs: Labs Test 11/21/24 11:27 11/21/24 07:05 11/21/24 03:15 11/21/24 00:39 Range/Units POC Glucose 110 H 70-106 mg/dl Ammonia 26 11-32 umol/L White Blood Count 5.8 4.4-10.8 10^3/uL Red Blood Count 4.37 4.0-5.20 10^6/uL Hemoglobin 13.0 12.2-16.2 g/dL Hematocrit 38.8 36.0-46.0 % Mean Corpuscular Volume 88.8 80.0-100.0 fL Mean Corpuscular Hemoglobin 29.9 28.0-32.0 pg Mean Corpuscular Hemoglobin Concent 33.6 32.0-36.0 g/dL Red Cell Distribution Width 13.0 11.8-14.3 % Platelet Count 182 140-450 10^3/uL Mean Platelet Volume 11.3 H 6.9-10.8 fL Neutrophils (%) (Auto) 54.6 37.0-80.0 % Lymphocytes (%) (Auto) 37.4 10.0-50.0 % Monocytes (%) (Auto) 4.7 0.0-12.0 % Eosinophils (%) (Auto) 3.0 0.0-7.0 % Basophils (%) (Auto) 0.3 0.0-2.0 % Neutrophils # (Auto) 3.1 1.6-8.6 10 ^3/uL Lymphocytes # (Auto) 2.2 0.4-5.4 10 ^3/uL Monocytes # (Auto) 0.3 0-1.3 10 ^3/uL Eosinophils # (Auto) 0.2 0-0.8 10 ^3/uL Basophils # (Auto) 0 0-0.2 10 ^3/uL Nucleated Red Blood Cells 0.1 % Sodium Level 139 136-145 mmol/L Potassium Level 3.8 3.5-5.1 mmol/L Chloride Level 105 98-107 mmol/L Carbon Dioxide Level 25 20-31 mmol/L Anion Gap 9 5-15 Blood Urea Nitrogen 20 9-23 mg/dL Creatinine 0.78 0.550-1.02 mg/dL Glomerular Filtration Rate Calc 82 >90 mL/min BUN/Creatinine Ratio 25.6 H 10.0-20.0 Serum Glucose 164 H 74-106 mg/dL Hemoglobin A1c 8.6 H <5.7 % A1C Calcium Level 9.1 8.7-10.4 mg/dL Prothrombin Time 10.0 9.3-11.8 sec Prothrombin Time INR 0.94 0.9-1.15 Activated Partial Thromboplast Time 24.8 24.5-34.5 SEC Lactic Acid Level 1.5 0.4-2.0 mmol/L Magnesium Level 2.1 1.6-2.6 mg/dL Total Bilirubin 0.6 0.2-1.0 mg/dL Direct Bilirubin 0.2 <0.3 mg/dL Aspartate Amino Transferase (AST) 19 13-40 U/L Alanine Aminotransferase (ALT) 19 7-40 U/L Alkaline Phosphatase 109 46-116 U/L Total Protein 7.4 5.7-8.2 g/dL Albumin 4.6 3.2-4.8 g/dL Lipase 32 12-53 U/L Thyroid Stimulating Hormone (TSH) 3.55 0.55-4.78 uIU/mL Test 11/20/24 23:00 Range/Units Urine Color Yellow Yellow Urine Clarity Clear Clear Urine pH 6.0 5.0-9.0 Urine Specific [place] > 1.050 H 1.001-1.035 Urine Protein 1+ H Negative Urine Ketones Negative Negative Urine Blood Negative Negative /uL Urine Nitrite Negative Negative Urine Bilirubin Negative Negative Urine Urobilinogen Normal Negative mg/dL Urine Leukocyte Esterase 2+ Negative /uL Urine RBC 13 0 - 4 /hpf Urine Microscopic WBC 66 H 0-5 /HPF Urine Squamous Epithelial Cells Few <5 /hpf Urine Bacteria None seen None Seen /hpf Urine Glucose Normal Normal mg/dL Urine Opiates Screen Pos NEGATIVE Urine Fentanyl Screen Neg NEGATIVE Urine Barbiturates Screen Neg NEGATIVE Urine Phencyclidine Screen Neg NEGATIVE Urine Amphetamines Screen Neg NEGATIVE Urine Benzodiazepines Screen Neg NEGATIVE Urine Cocaine Screen Neg NEGATIVE Urine Cannabinoids Screen Neg NEGATIVE Imaging: CT abdomen pelvis IMPRESSION: 1. No acute abdominal or pelvic finding. 2. Hepatomegaly and hepatic steatosis. 3. Diverticulosis coli without CT evidence of acute diverticulitis. Assessment: Abdominal pain Hematemesis History of GERD Plan: Discussed with Dr. Nunn - Pt will be scheduled for an EGD today 11/21/2024. Pt was informed of the risks (bleeding, infection, perforation, reaction to sedation medications and cardiopulmonary arrest) and benefit and is agreeable to undergo the procedures. Protonix and Carafate Discussed plan with patient and RN Thank you for this consult Date of Service: Nov 21, 2024 Billing Provider: FLORA LUX Common Visit Codes: CONSULT ONLY Consultation Codes: [id number] CONSULT <60MIN FLORA LUX Nov 21, 2024 12:46
[2024-11-21 13:22] LABS: Hematocrit 42.9 % (36.0-46.0); Hemoglobin 14.0 g/dL (12.2-16.2)
[2024-11-21] MEDS ORDERED: SODIUM CHLORIDE LOCK 10 ML ONE (13:38)
[2024-11-21] MEDS: LIDOCAINE VISCOUS 2% 15ML UD ONE (13:59)
[2024-11-21] MEDS: diphenhdrAMINE HCL 50 MG/1 ML VL ONE (14:02)
[2024-11-21] MEDS: MIDAZOLAM HCL 5 MG/ML-1ML VIAL ONE (14:02)
[2024-11-21] MEDS: fentaNYL CITRATE 100 MCG/2 ML VL ONE (14:02)
[2024-11-21 14:10] VITALS: PULSE 57; RESP 15; O2SAT 99
--- NOTE | 2024-11-21 14:13 | DVHOP2 ---
Operative Report DATE OF OPERATION: 11/21/24 PROCEDURE: Upper Endoscopy with biopsy PREOPERATIVE INDICATION: The patient is a 70 -year-old female undergoing endoscopy for nausea vomiting upper GI bleed POSTOPERATIVE DIAGNOSES: 1. 2 cm sliding-type hiatal hernia with grade a erosive esophagitis 2. Mild gastritis of the antrum and body and minimal duodenitis in the duodenal bulb otherwise normal examination of the 2nd and 3rd part of the duodenal good bile drainage and no active bleeding PROCEDURE PERFORMED BY: Arvind Nunn GI NURSE: Sumi SCOPE: Olympus videoendoscope. ASA CLASS: 2 PREOPERATIVE MEDICATIONS: Versed 2 mg, Fentanyl 50 mcg, Benadryl 25 mg I administered moderate sedation throughout this _7_ minutes procedure. An independent trained observer pushed medications at my direction, and monitored the patient's level of consciousness and physiological status throughout. PROCEDURE IN DETAIL: After obtaining an informed consent, the patient was placed on left lateral decubitus position. The patient was then sedated with the above medications. A bite block was placed between her teeth. The endoscope was then passed through the oropharynx, into the esophagus, and through the stomach and pylorus up to the second and third part of the duodenum. The endoscope was then withdrawn. The 2nd and 3rd part of the duodenum and the duodenal bulb were normal. Duodenal biopsies were obtained. There was good bile drainage but no GI bleeding The pre-pyloric area and antrum and body of the stomach showed mild gastritis with some hyperemia erythema. On retroflexion the fundus and cardia were normal. Gastric biopsies were obtained. The endoscope was then withdrawn into distal esophagus where she had a 2 cm sliding-type hiatal hernia with grade a erosive esophagitis. GE junction biopsies were obtained. The remaining distal and proximal esophagus and oropharynx were unremarkable The patient tolerated the procedure well without difficulty. COMPLICATIONS : None SPECIMENS: Duodenal biopsies Gastric biopsies GE junction biopsies DISPOSITION: Transfer back to the floor Stable PLAN: 1. Await for biopsy result 2. Will place pt on Protonix 40 mg bid 3. Carafate 1 g p.o. twice a day 4. DC aspirin NSAIDs smoking alcohol 5. Resume soft mechanical diet advance as tolerated 6. Outpatient follow up with me in 4-6 weeks to review results and discuss further management ARVIND NUNN MD Nov 21, 2024 14:13
--- NOTE | 2024-11-21 16:44 | DVHPNRES ---
Progress Note Date Seen: Nov 21, 2024 Resident Creating Document: RANJIT WYNNE RESIDENT Medical Necessity Reason Pt with a Central, PICC or Fol: No Subjective Review of Systems History of Present Illness Patient is 70 years old male with a past medical history of hypertension, hyperlipidemia, diabetes mellitus type 2 came with a complaint of hematemesis. As per patient she had 4 times hematemesis today since morning. Patient reported she has been having blood vomiting once every morning after she wakes up in the morning. But today it has been for 4 times that is unusual for her. Patient also reported chronic abdominal pain especially in the left flank, 01/16, diffuse, crampy, burning in nature, decreased with pain medication ibuprofen. Patient also reported she has been taking off and on ibuprofen almost twice a week for last 2 and half month due to abdominal pain. On further inquiry patient also reported seeing black stool for last 3 days. She reported she saw her primary care physician for abdominal pain but she does not have a diagnosis for that. Patient denied doing any colonoscopy or endoscopy or history of liver disease. Initial lab workup revealed hemoglobin 14.3. CT abdomen and pelvis revealed hepatomegaly with a hepatic steatosis, diverticulosis without diverticulitis, moderately dilated gallbladder. 11/21 interval events: Korean-speaking patient reportsdecreasing hematemesis. Her abdominal pain improved significantly today. However she reports having an itchy rash around the vaginal area. Review of systems: The patient was seen and examined at the bedside. Overnight events were reviewed. ROS as per above. No new complaints reported. Rest of the ROS is negative. Objective vital signs Vital Sign Date Time Temp Pulse Resp B/P (MAP) Pulse Ox O2 Delivery O2 Flow Rate FiO2 11/21/24 15:30 50 15 116/47 (70) 100 11/21/24 14:10 97.7 97.7 11/21/24 14:10 Nasal Cannula 6.0 11/21/24 07:45 21 Total Intake and Output 11/20/24 11/20/24 11/21/24 15:00 23:00 07:00 Intake Total 240 ml Balance 240 ml medications Current Medications Medications Dose Ordered Sig/Brittney Route Start Time Stop Time Status Last Admin Dose Admin Sodium Chloride 1,000 ml @ 120 mls/hr Q8H20M IV 11/21/24 03:00 11/21/24 11:32 120 MLS/HR Hydralazine HCl 10 mg Q6HP PRN IV 11/21/24 03:00 Diagnostic Test (Pha) 1 strip ACHS 11/21/24 07:00 11/21/24 11:32 1 STRIP Insulin Human Regular ACHS SC 11/21/24 07:00 11/21/24 06:55 3 UNITS Dextrose 50 ml UD PRN IV 11/21/24 03:15 Ceftriaxone Sodium 50 ml @ 100 mls/hr DAILY@09 IV 11/22/24 09:00 Morphine Sulfate 1 mg Q4HP PRN IV 11/21/24 12:00 Sucralfate 1 gm BID@0600,2200 PO 11/21/24 22:00 Pantoprazole Sodium 40 mg BID PO 11/21/24 22:00 Examination Pt is lying on bed General Appearance: Alert, Oriented X3, Cooperative, Mild distress HEENT: Atraumatic, Mucous membranes moist/pink Respiratory: Clear to auscultation, Normal air movement, No added sounds Cardiovascular: Regular rate, Normal S1, Normal S2, No murmurs Abdominal/ : Mild tenderness in epigastric, left hypochondriac and lumbar abdomen Active bowel sounds, Soft, no distention Extremities: No edema, Normal pulses, No tenderness/swelling Skin: No Significant rash, except past surgical scars Genitourinary: Red vaginal rash, no discharge noted Neuro: Normal speech, sensorimotor deficits none Psych/Mental Status: Mental status NL, Mood NL Nurse was there as livestock brands inspector during examination laboratory and microbiology Laboratory Tests 11/21/24 12:54 11/21/24 03:15 Test 11/21/24 03:15 Range/Units Serum Glucose 164 H 74-106 mg/dL Labs and/or images reviewed: Labs reviewed by me, Image(s) reviewed by me Problem List/Assessment/Plan Problem List/Assessment/Plan # hematemesis s/p EGD 11/21/2024 # diffuse abdominal pain due to gastroduodenitis # ruled out pancreatitis # hiatal hernia with grade a erosive esophagitis # alcohol use disorder -continue pantoprazole 40 mg IV b.i.d. -sucralfate -Abdomen / pelvis CT: No acute abdominal or pelvic finding.Hepatomegaly and hepatic steatosis. -continue IV normal saline as prescribed -diet advanced to full liquid -GI is onboard - Upper Endoscopy with biopsy 11/21/2024: 2 cm sliding-type hiatal hernia with grade a erosive esophagitis. Mild gastritis of the antrum and body and minimal duodenitis in the duodenal bulb otherwise normal examination of the 2nd and 3rd part of the duodenal good bile drainage and no active bleeding -lipase within normal limit - counseled on alcohol use cessation for 22 minutes # hepatomegaly with hepatic steatosis # diverticulosis without diverticulitis--evident on CT, outpatient follow-up # acute complicated UTI -evident on urinalysis -Rocephin -urine cultures ordered # hypertension -hydralazine IV p.r.n. as prescribed # diabetes mellitus type 2 -insulin sliding scale p.r.n. as prescribed # hyperlipidemia GI prophylaxis: Pantoprazole DVT prophylaxis: SCD Diet: Full liquid Goals of care discussed with the patient for 20 minutes: Full code status Case discussed with , patient and RN Plan discussed with: Patient, Other (RN) My Orders My Orders Orders - RANJIT WYNNE RESIDENT Procedure Category Date Status Time Vitamin B12 LAB 11/22/24 Verified 04:00 Vitamin D 25-Hydroxy LAB 11/22/24 Verified D2 + D3 04:00 Addendum Addendum Addendum I was physically present for the taylor portions of the service provided to patient by THE RESIDENT. I have reviewed the documentation, discussed the case with resident and agree with the resident's documentation except as noted. Also the patient's clinical case was discussed with the patient's nurse. This medical document was created using an electronic medical record system with computerized dictation system. Although this document has been carefully reviewed, there might still be some phonetic and typographical errors. These areas are purely typographical due to imperfections of the software programs, and do not reflect any compromise in the patient's medical care. Late signature. Date of Service: Nov 21, 2024 Billing Provider: BONIFACIO DEL RIO MD Common Visit Codes: [id number] INP/OBS CARE(HIGH) Secondary Visit Codes: [id number] CHNG SMOKING >10MIN (22 minutes for alcohol use cessation), 51436-EVGDXRON CARE PLAN 30 MINUTES (20 minutes) RANJIT WYNNE Nov 21, 2024 16:44 NATACHA WHARTON RESIDENT Nov 21, 2024 18:50 BONIFACIO DEL RIO MD Nov 24, 2024 05:43
[2024-11-21 17:07] VITALS: BP 127/58; PULSE 55; RESP 18; TEMP 97.8; O2SAT 96
[2024-11-21 20:00] VITALS: O2SAT 94
[2024-11-21 21:00] VITALS: BP 131/64; PULSE 63; RESP 18; TEMP 97.7; O2SAT 94
[2024-11-21] MEDS: PANTOPRAZOLE 40 MG TAB PO SCH (21:39)
[2024-11-21] MEDS: SUCRALFATE 1 GM/10 ML ORAL SUSP PO SCH (21:39)
[2024-11-21] MEDS ORDERED: PANTOPRAZOLE 40 MG/10 ML VIAL INJ IV SCH (22:00)
[2024-11-22 01:00] VITALS: BP 127/62; PULSE 59; RESP 18; TEMP 97.4; O2SAT 94
[2024-11-22 05:00] VITALS: BP 126/63; PULSE 54; RESP 18; TEMP 97.4; O2SAT 96
[2024-11-22 05:37] LABS: Hematocrit 38.7 % (36.0-46.0); Hemoglobin 12.8 g/dL (12.2-16.2); Mean Corpuscular Hemoglobin 29.4 pg (28.0-32.0); Mean Corpuscular Volume 88.8 fL (80.0-100.0); Nucleated Red Blood Cells % 0.1 %
[2024-11-22 05:51] LABS: Alanine Aminotransferase 14 U/L (7-40); Albumin 3.5 g/dL (3.2-4.8); Alkaline Phosphatase 82 U/L (46-116); Anion Gap 8 (5-15); BUN/Creatinine Ratio 17.5 (10.0-20.0); Blood Urea Nitrogen 11 mg/dL (9-23); Calcium 9.1 mg/dL (8.7-10.4); Carbon Dioxide 26 mmol/L (20-31); Potassium 3.8 mmol/L (3.5-5.1); Sodium 142 mmol/L (136-145); Total Protein 5.7 g/dL (5.7-8.2)
[2024-11-22 05:52] LABS: Bilirubin, Total 0.6 mg/dL (0.2-1.0)
[2024-11-22 06:00] LABS: Chloride 108 mmol/L (98-107); Glucose 128 mg/dL (74-106)
[2024-11-22 09:00] VITALS: BP 128/48; PULSE 56; RESP 14; TEMP 97.2; O2SAT 96
[2024-11-22] MEDS: cefTRIAXone 1GM/50ML D5W 50 ML IV SCH (09:36)
[2024-11-22] MEDS: LACTULOSE 20Gm/30ML SOLN PO ONE (09:37)
[2024-11-22] MEDS: BISACODYL 5 MG EC TAB PO ONE (09:37)
[2024-11-22] MEDS ORDERED: PANT40T PO (11:25)
[2024-11-22] MEDS ORDERED: SUCR1SUS26 PO (11:25)
--- NOTE | 2024-11-22 11:26 | DVHDSRES ---
Discharge Summary Date of Admission Resident Creating Document: RANJIT WYNNE Nov 21, 2024 at 02:54 Date of Discharge: Nov 22, 2024 Admitting Diagnosis Hematemesis with abdominal pain Labs/Diagnostic Data: Laboratory Results Test 11/22/24 05:38 11/22/24 05:01 11/21/24 07:05 11/21/24 03:15 POC Glucose 138 mg/dl (70-106) White Blood Count 5.9 10^3/uL (4.4-10.8) Red Blood Count 4.36 10^6/uL (4.0-5.20) Hemoglobin 12.8 g/dL (12.2-16.2) Hematocrit 38.7 % (36.0-46.0) Mean Corpuscular Volume 88.8 fL (80.0-100.0) Mean Corpuscular Hemoglobin 29.4 pg (28.0-32.0) Mean Corpuscular Hemoglobin Concent 33.2 g/dL (32.0-36.0) Red Cell Distribution Width 13.3 % (11.8-14.3) Platelet Count 173 10^3/uL (140-450) Mean Platelet Volume 10.2 fL (6.9-10.8) Neutrophils (%) (Auto) 63.6 % (37.0-80.0) Lymphocytes (%) (Auto) 28.1 % (10.0-50.0) Monocytes (%) (Auto) 4.9 % (0.0-12.0) Eosinophils (%) (Auto) 3.0 % (0.0-7.0) Basophils (%) (Auto) 0.4 % (0.0-2.0) Neutrophils # (Auto) 3.8 10 ^3/uL (1.6-8.6) Lymphocytes # (Auto) 1.7 10 ^3/uL (0.4-5.4) Monocytes # (Auto) 0.3 10 ^3/uL (0-1.3) Eosinophils # (Auto) 0.2 10 ^3/uL (0-0.8) Basophils # (Auto) 0 10 ^3/uL (0-0.2) Nucleated Red Blood Cells 0.1 % Sodium Level 142 mmol/L (136-145) Potassium Level 3.8 mmol/L (3.5-5.1) Chloride Level 108 mmol/L (98-107) Carbon Dioxide Level 26 mmol/L (20-31) Anion Gap 8 (5-15) Blood Urea Nitrogen 11 mg/dL (9-23) Creatinine 0.63 mg/dL (0.550-1.02) Glomerular Filtration Rate Calc 95 mL/min (>90) BUN/Creatinine Ratio 17.5 (10.0-20.0) Serum Glucose 128 mg/dL (74-106) Calcium Level 9.1 mg/dL (8.7-10.4) Total Bilirubin 0.6 mg/dL (0.2-1.0) Aspartate Amino Transferase (AST) 18 U/L (13-40) Alanine Aminotransferase (ALT) 14 U/L (7-40) Alkaline Phosphatase 82 U/L (46-116) Total Protein 5.7 g/dL (5.7-8.2) Albumin 3.5 g/dL (3.2-4.8) Vitamin B12 Level 757 pg/mL (211-911) Ammonia 26 umol/L (11-32) Hemoglobin A1c 8.6 % A1C (<5.7) Test 11/21/24 00:39 11/20/24 23:00 Prothrombin Time 10.0 sec (9.3-11.8) Prothrombin Time INR 0.94 (0.9-1.15) Activated Partial Thromboplast Time 24.8 SEC (24.5-34.5) Lactic Acid Level 1.5 mmol/L (0.4-2.0) Magnesium Level 2.1 mg/dL (1.6-2.6) Direct Bilirubin 0.2 mg/dL (<0.3) Lipase 32 U/L (12-53) Thyroid Stimulating Hormone (TSH) 3.55 uIU/mL (0.55-4.78) Urine Color Yellow (Yellow) Urine Clarity Clear (Clear) Urine pH 6.0 (5.0-9.0) Urine Specific [place] > 1.050 (1.001-1.035) Urine Protein 1+ (Negative) Urine Ketones Negative (Negative) Urine Blood Negative /uL (Negative) Urine Nitrite Negative (Negative) Urine Bilirubin Negative (Negative) Urine Urobilinogen Normal mg/dL (Negative) Urine Leukocyte Esterase 2+ /uL (Negative) Urine RBC 13 /hpf (0 - 4) Urine Microscopic WBC 66 /HPF (0-5) Urine Squamous Epithelial Cells Few /hpf (<5) Urine Bacteria None seen /hpf (None Seen) Urine Glucose Normal mg/dL (Normal) Urine Opiates Screen Pos (NEGATIVE) Urine Fentanyl Screen Neg (NEGATIVE) Urine Barbiturates Screen Neg (NEGATIVE) Urine Phencyclidine Screen Neg (NEGATIVE) Urine Amphetamines Screen Neg (NEGATIVE) Urine Benzodiazepines Screen Neg (NEGATIVE) Urine Cocaine Screen Neg (NEGATIVE) Urine Cannabinoids Screen Neg (NEGATIVE) Other Laboratory Tests 11/22/24 05:01 Brief Hx & Hospital Course: Patient is 70 years old male with a past medical history of hypertension, hyperlipidemia, diabetes mellitus type 2 came with a complaint of hematemesis. As per patient she had 4 times hematemesis today since morning. Patient reported she has been having blood vomiting once every morning after she wakes up in the morning. But today it has been for 4 times that is unusual for her. Patient also reported chronic abdominal pain especially in the left flank, 9/10, diffuse, crampy, burning in nature, decreased with pain medication ibuprofen. Patient also reported she has been taking off and on ibuprofen almost twice a week for last 2 and half month due to abdominal pain. On further inquiry patient also reported seeing black stool for last 3 days. She reported she saw her primary care physician for abdominal pain but she does not have a diagnosis for that. Patient denied doing any colonoscopy or endoscopy or history of liver disease. Initial lab workup revealed hemoglobin 14.3. CT abdomen and pelvis revealed hepatomegaly with a hepatic steatosis, diverticulosis without diverticulitis, moderately dilated gallbladder. Pancreatitis was ruled out by lipase in normal limit and abdominal pelvis CT showing no acute changes. She was treated with pantoprazole 40 mg IV b.i.d. and sucralfate. GI consult was done. Her upper endoscopy with biopsy revealed 2 cm sliding-type hiatal hernia with grade a erosive esophagitis.Mild gastritis of the antrum and body and minimal duodenitis in the duodenal bulb otherwise normal examination of the 2nd and 3rd part of the duodenal good bile drainage and no active bleeding. Or hepatomegaly with hepatic steatosis and diverticulosis evident on CT we advised her to do outpatient follow-up. Was found to have acute complicated UTI evident on urinalysis. She was treated with Rocephin and urine cultures were sent. Her hypertension was treated with hydralazine IV as prescribed. She took insulin sliding scale for her diabetes mellitus type 2. Patient was counseled on healthy lifestyle. The discharge plan was discussed with patient and patient agreed. The patient was stable, afebrile, and was tolerating oral food during the time of discharge. Patient was advised to follow-up with PCP in a week outpatient. Physical exam on the day of discharge: General Appearance: Alert, Oriented X3, Cooperative, Mild distress HEENT: Atraumatic, Mucous membranes moist/pink Respiratory: Clear to auscultation, Normal air movement, No added sounds Cardiovascular: Regular rate, Normal S1, Normal S2, No murmurs Abdominal/ : Active bowel sounds, Soft, no distention, no tenderness Extremities: No edema, Normal pulses, No tenderness/swelling Skin: No Significant rash, except past surgical scars Neuro: Normal speech, sensorimotor deficits none Psych/Mental Status: Mental status NL, Mood NL Nurse was there as lens cementer during examination Discussed with Dr. Del Rio Consults/Reason for consult GI for hematemesis Operations or Procedures S/P EGD on 11/21/2024 Condition at Discharge: Stable Final Diagnosis/Problems List Hematemesis due to erosive gastritis ; stopped Hepatomegaly with hepatic steatosis Diverticulosis without diverticulitis Acute complicated UTI Hypertension Diabetes mellitus type 2 Alcohol use disorder; counseled on cessation Discharge Disposition: Home Discharge Instruct/Medications Diet: Cardiac 2g Na,low cholest Activity: No Restrictions, As Tolerated Follow Up/Referral: Follow-up with PCP in 1 week and GI within 4 to 6 weeks Medications: As per EMR Scheduled Amlodipine Besylate (Amlodipine Besylate), 1 TAB PO DAILY Aspirin (Aspir-Low), 81 MG PO DAILY, (Reported) Gabapentin (Gabapentin), 100 MG PO TID Metformin Hydrochloride (Metformin Hydrochloride), 1 TAB PO DAILYPRN, (Reported) Metformin Hydrochloride (Metformin Hcl), 1 TAB PO BID Ondansetron Odt 4MG Tab (Zofran Po), 4 MG PO TID Pantoprazole Sodium Sesquihydr (Pantoprazole Sodium), 40 MG PO BID Sucralfate (Carafate Susp), 10 ML PO BID Discharge Statement: "Patient was advised to return to the ER or call 911 if any headaches, dizziness, shortness of breath, chest pain, abdominal pain, bleeding, fevers, or worsening of medical condition. Patient was counseled about treatment plan, medications, possible side effects, patientverbalized understanding. All questions were answered to the best of my ability. This discharge took greater then 30 minutes in planning, reviewing documentation, counseling the patient, and discussing with other team members." ASSESSMENT ASSESSMENT Assessment Gastritis Hepatomegaly with hepatic steatosis Diverticulosis without diverticulitis Addendum Addendum Addendum I was physically present for the taylor portions of the service provided to patient by THE RESIDENT. I have reviewed the documentation, discussed the case with resident and agree with the resident's documentation except as noted. Also the patient's clinical case was discussed with the patient's nurse. This medical document was created using an electronic medical record system with computerized dictation system. Although this document has been carefully reviewed, there might still be some phonetic and typographical errors. These areas are purely typographical due to imperfections of the software programs, and do not reflect any compromise in the patient's medical care. Late signature. Date of Service: Nov 22, 2024 Billing Provider: BONIFACIO DEL RIO MD Common Visit Codes: 19654-HMB/OBS DISCH DAY >30min RANJIT WYNNE RESIDENT Nov 22, 2024 11:25 NATACHA WHARTON RESIDENT Nov 22, 2024 17:08 BONIFACIO DEL RIO MD Nov 24, 2024 05:48
[2024-11-22 13:00] VITALS: BP 130/64; PULSE 56; RESP 16; TEMP 97.1; O2SAT 98
== END 2024-11-22 14:00 | disposition home or self-care (01) | DRG 241 ==
LOC: ER 22:30 → OVERFLOW 11-21 02:54 → TELE-EAST 11-21 16:41 → EAST 11-21 16:42
PROVIDERS: ADMIT Internal Medicine; ATTEND Internal Medicine
PROC: 0DB68ZX Excision of Stomach, Via Natural or Artificial Opening Endoscopic, Diagnostic (ICD-10-PCS; 2024-11-21)
PROC: 0DB48ZX Excision of Esophagogastric Junction, Via Natural or Artificial Opening Endoscopic, Diagnostic (ICD-10-PCS; 2024-11-21)
PROC: 0DB98ZX Excision of Duodenum, Via Natural or Artificial Opening Endoscopic, Diagnostic (ICD-10-PCS; principal; 2024-11-21 13:51)
DX: K29.91 Gastroduodenitis, unspecified, with bleeding (principal); K22.11 Ulcer of esophagus with bleeding; E72.20 Disorder of urea cycle metabolism, unspecified; K76.0 Fatty (change of) liver, not elsewhere classified; K57.31 Diverticulosis of large intestine without perforation or abscess with bleeding; N39.0 Urinary tract infection, site not specified; R16.0 Hepatomegaly, not elsewhere classified; I10 Essential (primary) hypertension; E11.9 Type 2 diabetes mellitus without complications; K21.9 Gastro-esophageal reflux disease without esophagitis; G89.29 Other chronic pain; E78.5 Hyperlipidemia, unspecified; K44.9 Diaphragmatic hernia without obstruction or gangrene
CPT/HCPCS: 36415; 74177; 80048; 80053; 80076; 80307; 81001; 82140; 82306; 82607; 82962; 83036; 83605; 83690; 83735; 84443; 85014; 85018; 85025; 85610; 85730; 86850; 86900; 86901; 87086; 93005; 96365; 96372; 96375; G0378; J1815; J2250; J2405; J2470